=== PATIENT | male | born 1950 | race Caucasian/White ===

== ENCOUNTER 2020-05-25 06:03 | Day surgery (SDC) | payer OTHER ==
[~2020-05-25] VITALS: Ht 172.7 cm; Wt 106.6 kg
--- NOTE | ~2020-05-25 | O ---
[facility] [place] [address] OPERATIVE REPORT Name: AVINASH GORMAN Room #: DEP [facility].#: [id number] Admission: 05/25/20 Attend Phys: Avinash Lange MD Discharge: 05/25/20 Date of : 54 Report #: [id number] THIS REPORT FOR: cc: Veronica Rahman MD,Veronica Lange,Avinash Pearson MD ~ DATE OF SERVICE: 05/25/2020 SERVICE: Orthopedics. SURGEON: Avinash Lange MD [employer]: None. PREOPERATIVE DIAGNOSES: 1. Status post left total knee arthroplasty. 2. Left knee stiffness. POSTOPERATIVE DIAGNOSES: 1. Status post left total knee arthroplasty. 2. Left knee stiffness. PROCEDURE: Manipulation under anesthesia, left knee. COMPLICATIONS: None. DRAINS: None. SPECIMENS: None. ANESTHESIA: Sedation. FINDINGS: 1. Left knee preoperative range of motion 8 degrees to 76 degrees. 2. Postoperative range of motion 2 degrees to 118 degrees. 3. Right knee range of motion 2 degrees to 130 degrees. HISTORY: The patient is a gentleman who is status post total knee arthroplasty, developed stiffness postoperatively. Despite physical therapy, he continued to have stiffness. He was indicated for manipulation due to ____. Risks, benefits, alternatives, and indication of surgery discussed with him in detail. Risks include but not limited to pain, bleeding, persistence, stiffness, need for further surgery as well as complications related to anesthesia. Despite the risks, he wished to proceed. [facility] [address] [address] OPERATIVE REPORT Name: AVINASH GORMAN Room #: DEP [facility] M.R.#: [id number] Admission: 05/25/20 Attend Phys: Avinash Lange MD Discharge: 05/25/20 Date of : 54 Report #: [id number] PROCEDURE IN DETAIL: After left lower extremity was correctly identified as the operative extremity, the patient underwent regional nerve block and then taken to the operating room where sedation anesthesia was induced without complication. Time-out procedure was performed on the left knee. The knee was flexed and the knee was extended. The ____ was easily palpable and audible. Release of adhesions was noted and there was significant improvement in the range of motion. He has slight flexion contracture, but primarily had restricted flexion and we achieved approximately 50 degrees total arc range of motion improvement. He tolerated the procedure well. There were no complications. He was then awakened from anesthesia and taken to recovery room in stable condition. No complications. All counts were correct. By: 45 00 Avinash Lange MD /nt
[~2020-05-25 06:03] MED LIST: ASA5UEC PO; FENOFIBRATE160 MG PO; LEVOTHYROXINE100 MCG PO; ONDANSETRON HCL4 M2 PO; TAMSULOSIN HCL0.4 MG PO; TRIAMCINOLONE A15 G1 TOP
[2020-05-25 06:35] VITALS: BP 145/69
== END 2020-05-25 08:30 | disposition home or self-care (01) ==
LOC: TBA 06:03 → OR 06:03
PROVIDERS: ATTEND Orthopaedic Surgery Sports Medicine
DX: M25.662 Stiffness of left knee, not elsewhere classified (principal); E03.9 Hypothyroidism, unspecified; K21.9 Gastro-esophageal reflux disease without esophagitis; Z96.652 Presence of left artificial knee joint; Z98.890 Other specified postprocedural states; Z79.899 Other long term (current) drug therapy; Z20.822 Contact with and (suspected) exposure to COVID-19; Z87.891 Personal history of nicotine dependence; Z88.0 Allergy status to penicillin
CPT/HCPCS: 50010; 50101; 62110; 62900; 70005